=== PATIENT | female | born 1960 | race Caucasian/White ===

== ENCOUNTER 2019-03-11 07:59 | Day surgery (SDC) | payer BC ==
[2019-03-11] MEDS ORDERED: Sodium Chloride 0.9% 1,000 ML IV SCH (08:30)
[2019-03-11] MEDS ORDERED: Propofol 200 MG/20 ML SDV ONE (09:08)
[2019-03-11] MEDS ORDERED: Midazolam 1 MG/ML 2 ML SDV ONE (09:08)
[2019-03-11] MEDS ORDERED: fentaNYL 100 MCG/2 ML SDV ONE (09:08)
[2019-03-11 10:36] VITALS: BP 127/83; PULSE 75
--- NOTE | 2019-03-11 11:24 | OR ---
DATE OF PROCEDURE: 03/11/2019 SURGEON: Lavelle Jay MD PROCEDURE: Esophagogastroduodenoscopy. FINDINGS: Normal esophagogastroduodenoscopy. COMPLICATIONS: None. 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 ANESTHESIA: MAC. RISKS: Risks, benefits, alternatives, and limitations including, but not limited to infection, bleeding, and perforation were explained to the patient, who wished to proceed. PROCEDURE IN DETAIL: The patient was placed in a left lateral decubitus position. EGD scope was introduced and advanced atraumatically to the second part of the duodenum. No evidence of duodenitis or ulceration. On retroflexion, there was no gastritis or ulceration. No gastric or duodenal ulcers. The GE junction was normal. The esophagus was normal. The patient tolerated the procedure well. Lavelle Jay MD /[id number]
== END 2019-03-11 10:45 | disposition home or self-care (01) ==
LOC: JP.SDS 07:59
PROVIDERS: ATTEND Surgery
DX: R10.13 Epigastric pain (principal)
CPT/HCPCS: 43235; J2250; J2704; J3010; J7030

== ENCOUNTER 2020-01-05 11:49 | Emergency (ER) | payer BC ==
[2020-01-05 12:49] VITALS: BP 209/116; PULSE 77
--- NOTE | 2020-01-05 13:13 | EDM.PDOC ---
<Annabel Juarez - Last Filed: 01/05/20 14:15> ED HPI GENERAL MEDICAL PROBLEM - General Chief Complaint: Respiratory Problem Stated Complaint: COVID SYMPTOMS Time Seen by Provider: 01/05/20 12:26 Source of Information: Reports: Patient, RN, RN Notes Reviewed History Limitations: Reports: No Limitations - History of Present Illness INITIAL COMMENTS - FREE TEXT/NARRATIVE: Pt here today with continuing COVID symptoms of wheezing, cough, and weakness. Pt has had 2 rounds of 20 mg prednisone x5 days. Not helpful. Pt c/o AOB with activity about the house. Does have sputum production at night with cough. Denies current fever, n/v, chills, or night sweats. Pt is able to speak in full sentences. does continue to smoke 5-7 cigarettes daily. Was COVID positive but is now off quarantine since 12-30-19. Duration: Chronic, Recurring Location: Reports: Chest - Related Data Allergies Allergy/AdvReac Type Severity Reaction Status Date / Time ketorolac [From Toradol] Allergy Severe Anaphylactic Verified 01/05/20 12:20 Shock chris Allergy Severe Anaphylactic Verified 01/05/20 12:20 Shock nicotine [From Nicoderm CQ] Allergy Intermediate Rash Verified 01/05/20 12:20 acetaminophen Allergy Mild Cannot Verified 01/05/20 12:20 [From Darvocet-N 100] Remember propoxyphene napsylate Allergy Cannot Verified 01/05/20 12:20 [From Darvocet-N 100] Remember Home Meds: Home Meds Hydrocodone/Acetaminophen [Lortab 5-500] 1 - 2 tab PO Q6H PRN 05/23/13 [History] Ibuprofen [Advil] 800 mg PO Q8H PRN 05/23/13 [History] Pregabalin [Lyrica] 150 mg PO BEDTIME 05/23/13 [History] Trolamine Salicylate [Sportscreme] 35.4 gm TP ASDIRECTED PRN 05/23/13 [History] tiZANidine [Zanaflex] 4 mg PO BEDTIME PRN 05/23/13 [History] ClonazePAM [KlonoPIN] 1 mg PO BEDTIME 05/25/13 [History] Albuterol [Ventolin HFA] 2 puff INH Q6H 09/30/14 [History] Cholecalciferol (Vitamin D3) [Vitamin D] 50,000 unit PO DAILY 03/10/19 [History] Estrogen,Con/M-Progest Acet [Prempro 0.625-2.5 mg Tablet] 1 tab PO DAILY 03/10/19 [History] Fluticasone Propion/Salmeterol [Advair 250-50 Diskus] 1 puff IH Q12H 03/10/19 [History] Fluticasone Propionate [Flonase Allergy Relief] 2 spray NS DAILY 03/10/19 [History] Montelukast [Singulair] 10 mg PO BEDTIME 03/10/19 [History] Nicotine [Nicotrol] 10 mg IH ASDIRECTED 03/10/19 [History] Pseudoephedrine [Sudafed 12 Hour] 120 mg PO BID PRN 03/10/19 [History] Triamcinolone Acetonide [Triamcinolone Acetonide 0.1% Oint] 1 applic TOP BID PRN 03/10/19 [History] diphenhydrAMINE [Benadryl] 50 mg PO Q6H PRN 03/10/19 [History] Cetirizine [ZyrTEC] 10 mg PO DAILY 01/05/20 [History] predniSONE [Prednisone] 20 mg PO DAILY 01/05/20 [History] Past Medical History HEENT History: Reports: Impaired Vision Cardiovascular History: Reports: Heart Murmur Respiratory History: Reports: Asthma, Other (See Below) Other Respiratory History: emphysema. 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 Cardiovascular Surgical History: Reports: None Respiratory Surgical History: Reports: None GI Surgical History: Reports: Colonoscopy Female Surgical History: Reports: Oophorectomy Other Female Surgeries/Procedures: oopherectomy r Neurological Surgical History: Reports: None Musculoskeletal Surgical History: Reports: Other (See Below) Other Musculoskeletal Surgeries/Procedures:: neck fusion Social & Family History - Tobacco Use Tobacco Use Status *Q: Current Every Day Tobacco User Years of Tobacco use: 40 Packs/Tins Daily: 1 - Caffeine Use Caffeine Use: Reports: Coffee Caffeine Use Comment: 5 cups daily - Recreational Drug Use Recreational Drug Use: No ED ROS GENERAL - Review of Systems Review Of Systems: See Below Constitutional: Reports: Weakness, Fatigue HEENT: Reports: No Symptoms Respiratory: Reports: Shortness of Breath, Wheezing, Sputum Cardiovascular: Reports: No Symptoms Endocrine: Reports: No Symptoms GI/Abdominal: Reports: No Symptoms : Reports: No Symptoms Musculoskeletal: Reports: No Symptoms Skin: Reports: No Symptoms Neurological: Reports: No Symptoms Psychiatric: Reports: Anxiety Hematologic/Lymphatic: Reports: No Symptoms Immunologic: Reports: No Symptoms ED EXAM, GENERAL - Physical Exam Exam: See Below Exam Limited By: No Limitations General Appearance: Alert, WD/WN, Anxious, Mild Distress Head: Normocephalic Neck: Normal Inspection, Supple, Non-Tender, Full Range of Motion Respiratory/Chest: No Respiratory Distress, Lungs Clear, No Accessory Muscle Use Cardiovascular: Regular Rate, Rhythm (Female) Exam: Deferred Rectal (Female) Exam: Deferred Neurological: Alert, Oriented Psychiatric: Anxious Skin Exam: Warm, Dry, Intact Course - Re-Assessments/Exams Free Text/Narrative Re-Assessment/Exam: 01/05/20 14:03 CBC and CMP WNL. CXR looks good. Will send home with Z-pack, Prednisone dosing, and Robitusin AC. Will hold off on duo nebs for now and see progression with RX given for todays visit. Departure - Departure Time of Disposition: 14:05 Disposition: Home, Self-Care 01 Condition: Good Clinical Impression: Bronchitis - Discharge Information *PRESCRIPTION DRUG MONITORING PROGRAM REVIEWED*: Not Applicable *COPY OF PRESCRIPTION DRUG MONITORING REPORT IN PATIENT DIANE: Not Applicable Instructions: Steps to Quit Smoking, [id number], Upper Respiratory Infection, Adult, [id number] Referrals: Perri De La O PA [Primary Care Provider] - Forms: ED Department Discharge Care Plan Goals: Please take Robitussin AC, Prednisone, and Z-pack as prescribed. Please see your primary provider on Thursday if the symptoms continue. If the symptoms worsen over the week end, please come back to the ER. Sepsis Event Note (ED) - Evaluation Sepsis Screening Result: No Definite Risk - Problem List Review Problem List Initiated/Reviewed/Updated: Yes - Assessment/Plan Plan: Please take Robitussin AC, Prednisone, and Z-pack as prescribed. Please see your primary provider on Thursday if the symptoms continue. If the symptoms worsen over the week end, please come back to the ER. <Ruslan Coombs - Last Filed: 01/05/20 18:01> Course - Vital Signs Last Recorded V/S: Last Vital Signs Temp 98.2 F 01/05/20 12:45 Pulse 77 01/05/20 12:47 Resp 16 01/05/20 12:45 BP 209/116 H 01/05/20 12:47 Pulse Ox 96 01/05/20 12:45 - Orders/Labs/Meds Labs: Laboratory Tests 01/05/20 01/05/20 Range/Units 13:32 13:32 WBC 9.6 (4.5-11.0) K/uL RBC 4.42 (3.30-5.50) M/uL Hgb 13.8 (12.0-15.0) g/dL Hct 41.1 (36.0-48.0) % MCV 93 (80-98) fL MCH 31 (27-31) pg MCHC 34 (32-36) % Plt Count 220 (150-400) K/uL Neut % (Auto) 63 (36-66) % Lymph % (Auto) 28 (24-44) % [place] % (Auto) 8 H (2-6) % Eos % (Auto) 1 L (2-4) % Baso % (Auto) 0 (0-1) % Sodium 138 L (140-148) mmol/L Potassium 3.8 (3.6-5.2) mmol/L Chloride 100 (100-108) mmol/L Carbon Dioxide 26 (21-32) mmol/L Anion Gap 15.8 H (5.0-14.0) mmol/L BUN 12 (7-18) mg/dL Creatinine 0.9 (0.6-1.0) mg/dL Est Cr Clr Drug Dosing 50.79 mL/min Estimated GFR (MDRD) > 60 (>60) Glucose 92 (74-106) mg/dL Calcium 9.7 (8.5-10.1) mg/dL Total Bilirubin 0.4 (0.2-1.0) mg/dL AST 17 (15-37) U/L ALT 23 (12-78) U/L Alkaline Phosphatase 79 (46-116) U/L Total Protein 7.2 (6.4-8.2) g/dL Albumin 4.1 (3.4-5.0) g/dL Globulin 3.1 (2.3-3.5) g/dL Albumin/Globulin Ratio 1.3 (1.2-2.2) Departure - Departure Time of Disposition: 15:17 Sepsis Event Note (ED) - Focused Exam Vital Signs: Vital Signs Temp Pulse Resp BP BP Pulse Ox 01/05/20 12:47 77 209/116 H 01/05/20 12:45 98.2 F 82 16 179/108 H 96 01/05/20 12:17 98.3 F 82 16 179/108 H 96 Attestation - Student - Attestation Statement Attestation Statement: I personally performed or re-performed the physical examination and medical decision making. I have verified all student documentation or findings, including history, physical exam and/or medical decision making.
--- NOTE | 2020-01-05 14:00 | CR ---
CHEST: 2 view CLINICAL HISTORY:Cough COMPARISON:None FINDINGS: The heart size, pulmonary vascularity and hilar structures are normal. No infiltrate effusion or pneumothorax is seen. IMPRESSION: No acute cardiopulmonary process.
== END 2020-01-05 15:00 | disposition home or self-care (01) ==
LOC: JP.ED 11:49
DX: J40 Bronchitis, not specified as acute or chronic (principal); F17.210 Nicotine dependence, cigarettes, uncomplicated; Z88.6 Allergy status to analgesic agent; Z91.018 Allergy to other foods; Z88.8 Allergy status to other drugs, medicaments and biological substances; Z79.899 Other long term (current) drug therapy
CPT/HCPCS: 36415; 71046; 71046-26; 80053; 85025; 99285-25

== ENCOUNTER 2020-06-15 10:33 | Emergency (ER) | payer BC ==
[2020-06-15 11:06] VITALS: BP 174/91; PULSE 81
--- NOTE | 2020-06-15 11:29 | EDM.PDOC ---
ED HPI GENERAL MEDICAL PROBLEM - General Chief Complaint: Chemical Exposure Stated Complaint: HEART PALPITATIONS Time Seen by Provider: 06/15/20 10:51 Source of Information: Reports: Patient History Limitations: Reports: No Limitations - History of Present Illness INITIAL COMMENTS - FREE TEXT/NARRATIVE: Patient presents from home due to concern about increasing sensation of right side chest pressure over the last 2+ weeks. She states she called her PCM today for appointment and was directed to go to the ER for further evaluation. She gives history of COVID pneumonia in Nov 2019 with approx 6 week timeframe of illness/recovery. She states that about 2 weeks ago her significant other was cleaning the oven at home and she noticed chest discomfort / SOB that she attributes to the chemical smell/fumes in the air of the house. She states that symptoms after that timeframe where noted as occurring in the morning and then in the later afternoon, she began using her duoneb routinely twice a day at that time. 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 She states since that time she has noted increased SOB sensation--tried to go shopping at [employer] but unable to tolerate walking in store. Then about 4 days ago chest pressure became constant in nature. She states that last night the chest pressure woke her from sleep around 0200--she feels that with her bedtime meds of zanaflex, lyrica & cloazepam she should not be waking up unless its something serious. Denies any other associated symptoms. PMH--tobacco use/abuse, COPD, vocal cord polyps, heart murmur, asthma, fibromyalgia, chronic pain syndrome (neck & back) Meds--zanaflex, lyrica, clonazepam, albuterol inhaler, singulair, advair 250/50, flonase, prempro, vit D3, duoneb Allergies--multiple reviewed in the chart Tob--1.5 ppday; attempting to decrease states was given zyban yesterday by her ENT EtOH--not reported Drugs--not reported Onset: Gradual (initial symptoms started 2+ weeks ago/intermittent in nature, over last 4 days has become more constant) Location: Reports: Chest Quality: Reports: Pressure (rates as 4/10) Severity: Mild 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, Other (see below) (home medications as already prescribed) - Related Data Allergies Allergy/AdvReac Type Severity Reaction Status Date / Time ketorolac [From Toradol] Allergy Severe Anaphylactic Verified 06/15/20 10:52 Shock chris Allergy Severe Anaphylactic Verified 06/15/20 10:52 Shock nicotine [From Nicoderm CQ] Allergy Intermediate Rash Verified 06/15/20 10:52 acetaminophen Allergy Mild Cannot Verified 06/15/20 10:52 [From Darvocet-N 100] Remember propoxyphene napsylate Allergy Cannot Verified 06/15/20 10:52 [From Darvocet-N 100] Remember Home Meds: Home Meds Pregabalin [Lyrica] 150 mg PO BEDTIME 05/23/13 [History] tiZANidine [Zanaflex] 4 mg PO BEDTIME PRN 05/23/13 [History] ClonazePAM [KlonoPIN] 1 mg PO BEDTIME 05/25/13 [History] Albuterol [Ventolin HFA] 2 puff INH Q6H 09/30/14 [History] Cholecalciferol (Vitamin D3) [Vitamin D] 50,000 unit PO DAILY 03/10/19 [History] Estrogen,Con/M-Progest Acet [Prempro 0.625-2.5 mg Tablet] 1 tab PO DAILY 03/10/19 [History] Fluticasone Propion/Salmeterol [Advair 250-50 Diskus] 1 puff IH Q12H 03/10/19 [History] Fluticasone Propionate [Flonase Allergy Relief] 2 spray NS DAILY 03/10/19 [History] Montelukast [Singulair] 10 mg PO BEDTIME 03/10/19 [History] Nicotine [Nicotrol] 10 mg IH ASDIRECTED 03/10/19 [History] Ipratropium/Albuterol Sulfate [Iprat-Albut 0.5-3(2.5) mg/3 ml] 1 ampule INH BID PRN 06/15/20 [History] Past Medical History HEENT History: Reports: Impaired Vision Cardiovascular History: Reports: Heart Murmur Respiratory History: Reports: Asthma, Other (See Below) Other Respiratory History: emphysema. 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 Cardiovascular Surgical History: Reports: None Respiratory Surgical History: Reports: None GI Surgical History: Reports: Colonoscopy Female Surgical History: Reports: Oophorectomy Other Female Surgeries/Procedures: oopherectomy r Neurological Surgical History: Reports: None Musculoskeletal Surgical History: Reports: Other (See Below) Other Musculoskeletal Surgeries/Procedures:: neck fusion Social & Family History - Tobacco Use Tobacco Use Status *Q: Current Every Day Tobacco User Years of Tobacco use: 45 Packs/Tins Daily: 1.5 - Caffeine Use Caffeine Use: Reports: Coffee Caffeine Use Comment: 5 cups daily ED ROS GENERAL - Review of Systems Review Of Systems: Comprehensive ROS is negative, except as noted in HPI. Constitutional: Reports: No Symptoms HEENT: Reports: No Symptoms Respiratory: Reports: Shortness of Breath (increases with activity such as walking at [employer]) Cardiovascular: Reports: Chest Pain (right sided chest pressure) Endocrine: Reports: No Symptoms GI/Abdominal: Reports: No Symptoms Musculoskeletal: Reports: No Symptoms Skin: Reports: No Symptoms Neurological: Reports: No Symptoms Psychiatric: Reports: No Symptoms Hematologic/Lymphatic: Reports: No Symptoms Immunologic: Reports: No Symptoms ED EXAM, BURN/SMOKE INHALATION - Physical Exam Exam: See Below Exam Limited By: No Limitations General Appearance: Alert, WD/WN, No Apparent Distress Eye Exam: Bilateral Eye: EOMI, Normal Inspection, PERRL Ears (Abbreviated): Normal External Exam Mouth/Throat: No Symptoms Reported (moist mucous membranes) Head: Atraumatic, Normocephalic Neck: No Symptoms, Normal, Supple, Full Range of Motion Respiratory: No Respiratory Distress, Lungs Clear, Normal Breath Sounds, No Accessory Muscle Use, Chest Non-Tender, Other (forced expiration with very mild end expiratory wheeze, greater on left than right) Cardiovascular: Normal Peripheral Pulses, Regular Rate, Rhythm, No Edema, No Murmur Peripheral Pulses: 2+: Radial (L), Radial (R) GI/Abdominal: Normal Bowel Sounds, Soft, Non-Tender (Female) Exam: Deferred Rectal Exam: Deferred Back Exam: Normal Inspection Extremities: Normal Inspection, No Pedal Edema, Normal Capillary Refill Neurological: Alert, Oriented, Normal Cognition, No Motor/Sensory Deficits Psychiatric: Normal Affect, Normal Mood Skin Exam: Warm, Dry, Intact, Normal Color #1 Interpretation EKG Date: 06/15/20 Time: 11:22 (read @ 1125) Rhythm: NSR Rate (Beats/Min): 79 [place]: Normal P-Wave: Present (VA-103) QRS: Normal (QRS-96) ST-T: Normal QT: Normal (QT/QTc-369/424) EKG Interpretation Comments: no STEMI noted; Sinus rhythm, abnl R-wave progression/early transition Course - Vital Signs Last Recorded V/S: Last Vital Signs Temp 97.2 F 06/15/20 11:05 Pulse 81 06/15/20 11:05 Resp 18 06/15/20 11:05 BP 174/91 H 06/15/20 11:05 Pulse Ox 98 06/15/20 11:05 - Orders/Labs/Meds Orders: Active Orders 24 hr Category Date Time Status EKG Documentation Completion [RC] ASDIRECTED Care 06/15/20 11:08 Active Chest 2V [CR] Stat Exams 06/15/20 11:07 Taken EKG 12 Lead [EK] Routine Ther 06/15/20 11:07 Ordered Labs: Laboratory Tests 06/15/20 06/15/20 Range/Units 11:20 11:20 WBC 6.6 (4.5-11.0) K/uL RBC 4.25 (3.30-5.50) M/uL Hgb 13.4 (12.0-15.0) g/dL Hct 40.2 (36.0-48.0) % MCV 95 (80-98) fL MCH 32 H (27-31) pg MCHC 33 (32-36) % Plt Count 174 (150-400) K/uL Neut % (Auto) 66 (36-66) % Lymph % (Auto) 22 L (24-44) % [place] % (Auto) 10 H (2-6) % Eos % (Auto) 2 (2-4) % Baso % (Auto) 1 (0-1) % Sodium 140 (140-148) mmol/L Potassium 4.0 (3.6-5.2) mmol/L Chloride 103 (100-108) mmol/L Carbon Dioxide 28 (21-32) mmol/L Anion Gap 9.2 (5.0-14.0) mmol/L BUN 12 (7-18) mg/dL Creatinine 0.9 (0.6-1.0) mg/dL Est Cr Clr Drug Dosing 50.79 mL/min Estimated GFR (MDRD) > 60 (>60) Glucose 135 H (74-106) mg/dL Calcium 9.4 (8.5-10.1) mg/dL Magnesium 2.2 (1.8-2.4) mg/dL Troponin I < 0.017 (0.000-0.056) ng/mL - Radiology Interpretation Free Text/Narrative:: Chest 2V--preliminary reading No acute process noted, compared to film in Dec 2019 Final radiology reading pending Departure - Departure Time of Disposition: 11:59 Disposition: DC/Tfer to Critical Access 66 Condition: Good Clinical Impression: Pressure in right side of chest, COPD (chronic obstructive pulmonary disease), Tobacco use disorder, Hypertension - Discharge Information *PRESCRIPTION DRUG MONITORING PROGRAM REVIEWED*: Not Applicable *COPY OF PRESCRIPTION DRUG MONITORING REPORT IN PATIENT DIANE: Not Applicable Instructions: Nonspecific Chest Pain, Adult, Steps to Quit Smoking, [id number], Chronic Obstructive Pulmonary Disease, [id number], Managing Your Hypertension Referrals: PCP,None [Primary Care Provider] - Forms: ED Department Discharge Additional Instructions: follow up with your primary care provider in the next 3-5 days for ongoing chronic medical care needs--you may want to discuss pulmonology referral for further evaluation given your history of COVID pneumonia, tobacco use, COPD/asthma and symptoms as noted today in the ER Sepsis Event Note (ED) - Evaluation Sepsis Screening Result: No Definite Risk - Focused Exam Vital Signs: Vital Signs Temp Pulse Resp BP Pulse Ox 06/15/20 11:05 97.2 F 81 18 174/91 H 98 - My Orders Last 24 Hours: My Active Orders 06/15/20 11:07 Chest 2V [CR] Stat EKG 12 Lead [EK] Routine 06/15/20 11:08 EKG Documentation Completion [RC] ASDIRECTED - Assessment/Plan Last 24 Hours: My Active Orders 06/15/20 11:07 Chest 2V [CR] Stat EKG 12 Lead [EK] Routine 06/15/20 11:08 EKG Documentation Completion [RC] ASDIRECTED
--- NOTE | 2020-06-15 13:16 | CR ---
CHEST: 2 view CLINICAL HISTORY:Right-sided chest pressure COMPARISON:2020 FINDINGS: The heart size, pulmonary vascularity and hilar structures are normal. No infiltrate effusion or pneumothorax is seen. There are small healed rib fractures on the left. IMPRESSION: No acute cardiopulmonary process.
== END 2020-06-15 12:24 | disposition critical access hospital (66) ==
LOC: JP.ED 10:33
DX: R07.89 Other chest pain (principal); J44.9 Chronic obstructive pulmonary disease, unspecified; I10 Essential (primary) hypertension; F17.210 Nicotine dependence, cigarettes, uncomplicated; Z88.8 Allergy status to other drugs, medicaments and biological substances; Z91.018 Allergy to other foods; Z79.899 Other long term (current) drug therapy
CPT/HCPCS: 36415; 71046; 71046-26; 80048; 83735; 84484; 85025; 93005; 99284; 99285-25

== ENCOUNTER 2023-08-05 07:57 | Day surgery (SDC) | payer BC ==
[2023-08-05 08:25] LABS: HEMATOCRIT 43.2 % (34.3-46.0); HEMOGLOBIN 15.1 g/dL (11.2-15.5); MEAN CORPUSCULAR HEMOGLOBIN 32.3 pg (31.6-35.5); MEAN CORPUSCULAR VOLUME 92.3 fL (81.4-99.0); RED BLOOD CELL COUNT 4.68 M/uL (3.77-5.24); WHITE BLOOD CELL COUNT,WBC 8.5 K/uL (3.2-11.0)
[2023-08-05] MEDS ORDERED: ceFAZolin 2 GM in Sodium Chloride 0.9% 100 ML IV ONE (08:30)
[2023-08-05 08:46] LABS: A/G RATIO 1.1 (1.2-2.2); ALANINE AMINOTRANSFERASE,ALT 26 U/L (12-78); ALKALINE PHOSPHATASE 103 U/L (46-116); ANION GAP 17.9 mmol/L (5.0-14.0); ASPARTATE AMNIOTRANSFERASE,AST 25 U/L (15-37); BILIRUBIN TOTAL 0.6 mg/dL (0.2-1.0); BLOOD UREA NITROGEN,BUN 14 mg/dL (7-18); CALCIUM 9.3 mg/dL (8.5-10.1); CARBON DIOXIDE,CO2 23 mmol/L (21-32); CHLORIDE,CL 99 mmol/L (100-108); CREATININE 0.9 mg/dL (0.6-1.0); EST CRCL DRUG DOSING (CG) 48.91 mL/min; ESTIMATED GFR 72 mL/min (>60); GLUCOSE RANDOM 77 mg/dL (74-106); POTASSIUM,K 3.9 mmol/L (3.6-5.2); PROTEIN TOTAL,TP 7.8 g/dL (6.4-8.2); SODIUM,NA 136 mmol/L (140-148)
[2023-08-05] MEDS: Nozin Nasal Sanitizer NASBOTH ONE (08:54)
[2023-08-05] MEDS: Lactated Ringers 1,000 ML IV SCH (09:18)
[2023-08-05] MEDS ORDERED: Dexamethasone 4 MG/ML SDV ONE (09:53)
[2023-08-05] MEDS ORDERED: Ondansetron 4 MG/2 ML SDV ONE (09:53)
[2023-08-05] MEDS ORDERED: Glycopyrrolate 0.2 MG/ML 5 ML MDV ONE (09:53)
[2023-08-05] MEDS ORDERED: fentaNYL 250 MCG/5 ML SDV ONE (09:53)
[2023-08-05] MEDS ORDERED: Rocuronium 50 MG/5 ML Vial ONE (09:53)
[2023-08-05] MEDS ORDERED: Neostigmine Methylsulfate 10 MG/10 ML MDV ONE (09:53)
[2023-08-05] MEDS ORDERED: Propofol 200 MG/20 ML SDV ONE (09:53)
[2023-08-05] MEDS: ceFAZolin 2 GM in Premix Bag 1 BAG IV ONE (09:55)
[2023-08-05] MEDS ORDERED: Sodium Chloride 0.9% 10 ML ONE (10:17)
[2023-08-05] MEDS ORDERED: ePHEDrine 50 MG/ML SDV ONE (10:17)
[2023-08-05] MEDS: Bupivacaine 0.5% 50 ML MDV ONE (10:47)
[2023-08-05] MEDS ORDERED: fentaNYL 100 MCG/2 ML SDV ONE (11:20)
[2023-08-05] MEDS: Acetaminophen/HYDROcodone 325-5 MG Tab PO ONE (13:08)
[2023-08-05 13:57] VITALS: BP 152/79; PULSE 62
== END 2023-08-05 13:59 | disposition home or self-care (01) ==
LOC: JP.SDS 07:57
PROVIDERS: ATTEND Specialist
DX: S73.101A Unspecified sprain of right hip, initial encounter (principal); M94.251 Chondromalacia, right hip; G89.4 Chronic pain syndrome; I10 Essential (primary) hypertension; J44.9 Chronic obstructive pulmonary disease, unspecified; F32.A Depression, unspecified; F17.200 Nicotine dependence, unspecified, uncomplicated
CPT/HCPCS: 01214; 29999; 36415; 76000; 80053; 85027; A9270; C1769; J0665; J0690; J1100; J2405; J2704; J2710; J3010; J3490; J7120